=== PATIENT | male | born 1990 | race Caucasian/White ===

== ENCOUNTER 2025-02-23 13:51 | Outpatient (CLI) | payer MEDICARE, MEDICAID, SELFPAY ==
--- OUTSIDE RECORDS SUMMARY | 2025-02-23 14:04 | XMS_ITS | Clinical Summary ---
Author Organization [facility] Address [address] [place] [id number] Care Team Providers Care Microbiology Lab Manager Name Role Phone Juan Anderson MD Primary Care Provider [phone] Medications No known medications Active Problems Problem Noted Date Diagnosed Date Unspecified neurodevelopmental disorder 09/12/19 25 Immunizations Immunization Administration Dates Next Due Covid-19, Mrna, Lnp-s, PF, 1 00 mcg/0.5 mL Dose (Moderna) 07/03/2021 Family History Relation Name Status Comments Father Mother Alive Sister (31) Alive Social History Tobacco Use Types Packs/Day Years Used Date Smoking Tobacco: Never Smokeless Tobacco: Never Tobacco Cessation:Counseling Given: Not Answered Alcohol Use Standard Drinks/Week Comments Never 0 (1 standard drink = 0.6 oz pur e alcohol) Sexually Active Control Partners Comments Never Sex and Gender Information Value Date Recorded Sex Assigned at Not on file 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 Gender Identity Not on file Sexual Orientation Not on file Plan of Treatment Health Maintenance Due Date Last Done Comments Hepatitis C Virus (HCV) Screening 1990 Human Papillomavirus (HPV) Immunization (1 - Male 3-dose series) 2005 Influenza Immunization (#1) 04/02/202506/02, 05/12/2023, 05/07/2022, Additional history exists Respiratory Syncytial Virus (RSV) Immunization (Adult) (1 - 1-dose 75+ series) 2065 Hepatitis B Immunization Completed 997, 01/12/1997, 12/15/1996 TdaP Immunization Completed 06/30/2006 Pneumococcal Immunization Combined Aged Out 05/03/2014 No longer eligible based on patient's age to complete this topic DTaP/Tdap/Td Immunization Discontinued 2015, 06/30/2006, 04/08/1995, Additional history exists SARS-COV-2 Immunization Completed 06/15/20, 06/04/2022, 03/23/2022, Additional history exists Meningococcal Immunization (ACWY) Aged Out No longer eligible based on patient's age to complete this topic Rotavirus Immunization Aged Out No lo nger eligible based on patient's age to complete this topic Insurance MEDICAID [place] Care Teams Microbiology Lab Manager Relationship Specialty Start Date End Date Juan Anderson MD [address] [place] [address] PCP - General Internal Medicine 08/15/24
[2025-02-23 14:16] LABS: Hematocrit 47.2 % (40.0-54.0); Hemoglobin 15.6 g/dL (14.0-18.0); Immature Granulocyte Percent A 1.0 % (0.0-0.0); Lymphocytes Absolute Auto 3.67 K/mm3 (1.10-4.50); Mean Corpuscular HGB Conc 33.1 g/dL (32-36); Mean Corpuscular Hemoglobin 28.7 pg (27.0-31.0); Mean Corpuscular Volume 86.9 fL (78.0-102.0); Nucleated Red Blood Cells Absolute Auto 0.00 K/mm3 (0.00-0.00); Nucleated Red Blood Cells Perc 0.0 % (0-0.0); Platelet Count Result 223 K/mm3 (150-420); Red Blood Count 5.43 M/mm3 (4.70-6.10); White Blood Count 10.4 K/mm3 (4.8-10.8)
[2025-02-23 15:24] LABS: Alanine Aminotransferase 38 U/L (6-50); Albumin Level 4.3 g/dL (3.5-5.1); Aspartate Amino Transferase 28 U/L (17-59); Blood Urea Nitrogen 15 mg/dL (9-20); Calcium 9.0 mg/dL (8.4-10.2); Carbon Dioxide 24 mmol/L (22-30); Chloride 108 mmol/L (98-107); Estimated Glomerular Filt Rate > 60; Glucose 90 mg/dL (65-110); Potassium 4.0 mmol/L (3.4-5.0); Total Protein 7.6 g/dL (6.3-8.2)
[2025-02-23 15:25] LABS: Alkaline Phosphatase 71 U/L (38-126); Anion Gap 8 mmol/L (4-12); Bilirubin,Total 0.4 mg/dL (0.2-1.3); Osmolality Calculated 290 mOsm/kg (285-295); Sodium 140 mmol/L (137-145)
[2025-02-23 15:39] LABS: Cannabinoid Screen Urine Negative (Negative)
[2025-02-23 15:42] LABS: Free T4 Free Thyroxine 1.00 ng/dL (0.78-2.19)
[2025-02-23 15:55] LABS: Thyroid Stimulating Hormone 1.240 uIU/mL (0.465-4.680)
[2025-02-23 16:22] LABS: Hemoglobin A1C 4.9 % (<5.7)
== END 2025-02-23 13:52 | disposition home or self-care (01) ==
DX: Z13.1 Encounter for screening for diabetes mellitus (principal); E55.9 Vitamin D deficiency, unspecified; F41.9 Anxiety disorder, unspecified; Z79.899 Other long term (current) drug therapy
CPT/HCPCS: 36415; 80053; 80307; 82306; 83036; 84439; 84443; 85025